=== PATIENT | female | born 1950 | race Caucasian/White ===

== ENCOUNTER 2020-06-10 05:50 | Inpatient (IN) ==
--- NOTE | 2020-05-08 10:48 | PAT Medication Instructions ---
Medication Instructions Date of Service May 08, 2020 Home Medications amlodipine 10 mg PO QAM aspirin [Aspir-81] 81 mg PO QAM biotin 1,000 mcg PO QAM calcium carbonate [Calcium 600] 600 mg PO BID cholecalciferol (vitamin D3) 10 mcg PO QAM furosemide 40 mg PO QAM metformin 500 mg PO BID metoprolol tartrate 100 mg PO QAM multivitamin 1 cap PO DAILY potassium chloride [Klor-Con M20] 20 meq PO QAM simvastatin 20 mg PO HS DO NOT take the morning of surgery biotin 1,000 mcg PO QAM calcium carbonate [Calcium 600] 600 mg PO BID cholecalciferol (vitamin D3) 10 mcg PO QAM furosemide 40 mg PO QAM metformin 500 mg PO BID multivitamin 1 cap PO DAILY potassium chloride [Klor-Con M20] 20 meq PO QAM Take morning of surgery With a small sip of water, OTHERWISE NOTHING TO EAT OR DRINK AFTER MIDNIGHT: amlodipine 10 mg PO QAM aspirin [Aspir-81] 81 mg PO QAM metoprolol tartrate 100 mg PO QAM Take evening before surgery calcium carbonate [Calcium 600] 600 mg PO BID metformin 500 mg PO BID simvastatin 20 mg PO HS Other Notes If you have any questions please call us at [phone] or [phone] or [phone] or [phone]
--- NOTE | 2020-05-08 10:59 | Anesthesiology Consultation ---
Date of Service May 08, 2020 Assessment & Plan (1) Encounter for pre-operative examination: COVID Status: As of 05/08 assessment, patient denies travel to endemic area, known exposure/sick contacts, or symptoms of COVID19. Preoperative COVID19 testing to be completed prior to surgery, pt aware to self-quarantine after test is completed. Chart Review Chart Review: Acceptable Risk for Surgery (pending surgeon ordered PCP clearance 05/20) and Patient seen in Pre Admission Testing Teaching & Discussion Instructed NPO after midnight before surgery, except medications with 15 cc of water. Medication instructions provided according to the PAT guidelines. History Surgery Operation Date: 06/10/20 07:00 Proposed Procedures p Left Total Knee Arthroplasty - Uche Whitman DO Height/Weight Height: 5 ft 1.5 in Weight: 106.3 kg Allergies Allergy/AdvReac Type Severity Reaction Status Date / Time droperidol AdvReac Unknown ANXIOUS Verified 05/05/20 14:08 lisinopril AdvReac Unknown Cough Verified 05/05/20 14:08 Medications Home Medications Medication Instructions Recorded Confirmed Last Taken amlodipine 10 mg PO QAM 05/05/20 05/05/20 Unknown aspirin [Aspir-81] 81 mg PO QAM 05/05/20 05/05/20 Unknown biotin 1,000 mcg PO QAM 05/05/20 05/05/20 Unknown calcium carbonate [Calcium 600] 600 mg PO BID 05/05/20 05/05/20 Unknown cholecalciferol (vitamin D3) 10 mcg PO QAM 05/05/20 05/05/20 Unknown [Vitamin D3] furosemide 40 mg PO QAM 05/05/20 05/05/20 Unknown metformin 500 mg PO BID 05/05/20 05/05/20 Unknown metoprolol tartrate 100 mg PO QAM 05/05/20 05/05/20 Unknown multivitamin 1 cap PO DAILY 05/05/20 05/05/20 Unknown potassium chloride [Klor-Con M20] 20 meq PO QAM 05/05/20 05/05/20 Unknown simvastatin 20 mg PO HS 05/05/20 05/05/20 Unknown Past Medical History Medical History Arthritis High cholesterol History of kidney stones HTN (hypertension) Morbid obesity Numbness of toes BOTH FEET (SPORADIC) Pre-diabetes SOB (shortness of breath) on exertion UP A HILL OR LARGE FLIGHT OF STEPS Exercise / Class Metabolic Activity III < 4 Walking/Shop/Light housework (Denies CP or SOB with ambulation on one level) Past Family History Family History (Updated 05/05/20 @ 14:18 by Sanjay Mcgee RN) Mother Family history of esophageal cancer Family history of cancer Sister Family history of cancer Father Family history of cancer Aunt Family history of cancer Past Surgical History Surgical History History of arthroscopy of right knee History of bilateral oophorectomy History of X2 (1 WITH TUBAL LIGATION) History of colonoscopy History of D&C History of exploratory laparotomy History of left cataract surgery History of right cataract surgery Past Anesthesia History No Hx of Anesthesia Complications and No Family Hx of Anesthesia Complications History of PONV No Hx of PONV and No Hx of Motion Sickness Social History Smoking Status: Never smoker Do You Dip or Chew Tobacco: No Hx Alcohol Use: Yes Alcohol type: beer alcohol intake frequency: a few times a month Hx Substance Use: No substance use type: does not use Review of Systems Pt denies any recent chest pain, shortness of breath, palpitations, cough, fever or URI. Physical Exam Vital Signs BP: 125/79 P: 84bpm SPO2: 95% RA T: 98.1 F R: 16 ENMT Mouth: + dental restorations (upper R crown); no chipped teeth and no loose teeth Thyromental Distance: < 3.5 Finger Breadths (3) Mallampati Class: II Neck + short neck; neck extension not limited Respiratory normal respiratory effort Auscultation: lungs clear to auscultation bilaterally Cardiovascular Rate/Rhythm: regular rate and regular rhythm Heart Sounds: no murmur Extremities: no edema Testing Laboratory Results 05/08/20 11:10 PT 10.9 Seconds (9.0-12.0) 05/08/20 11:10 INR 1.0 (0.9-1.1) 05/08/20 11:10 APTT 27.5 Seconds (21.0-31.0) 05/08/20 11:10 Hemoglobin A1c 6.6 % (4.5-5.6) H 05/08/20 11:10 Urine Color Dark Yellow 05/08/20 11:10 Urine Appearance Clear (Clear) 05/08/20 11:10 Urine pH 5.0 (4.5-7.5) 05/08/20 11:10 Ur Specific [place] 1.027 (1.000-1.030) 05/08/20 11:10 Urine Protein Trace (Negative) H 05/08/20 11:10 Urine Glucose (UA) Negative (Negative) 05/08/20 11:10 Urine Ketones Trace (Negative) H 05/08/20 11:10 Urine Nitrite Negative (Negative) 05/08/20 11:10 Ur Leukocyte Esterase Negative (Negative) 05/08/20 11:10 Urine WBC (Auto) 5-10 /hpf (0-5) H 05/08/20 11:10 Urine RBC (Auto) 5-10 /hpf (0-4) H 05/08/20 11:10 U Hyaline Cast (Auto) 1-5 /lpf (0-5) 05/08/20 11:10 U Epithel Cells (Auto) 10-20 /lpf (0-5) H 05/08/20 11:10 Urine Bacteria (Auto) Negative (Negative) 05/08/20 11:10 Blood Type A Positive 05/08/20 11:10 Antibody Screen NEGATIVE 05/08/20 11:10 Electrocardiogram Date: 05/08/20 Findings: + NSR @ (75bpm) Chest X-Ray Date: 05/08/20 Findings: + NAD
--- NOTE | 2020-05-08 11:43 | XRay Report ---
XR chest Pre-admission PA/Lat CLINICAL HISTORY: Preoperative evaluation. COMPARISON STUDY: No previous studies for comparison. FINDINGS: Lung volumes are normal. Lungs are clear. There is no pneumothorax or pleural effusion. Car diac size is normal. Mediastinal contours are normal. There is no evidence for pulmonary edema. IMPRESSION: No acute cardiopulmonary findings. ACT 112: Negative or not required by law. Electronically signed by: Arvind Mccollum M.D. 05/08/2020 11:41 AM
[2020-05-08 13:03] LABS: Basophils # (auto) 0.03 K/uL (0-0.2); Basophils % (auto) 0.4 %; Eosinophils # (auto) 0.12 K/uL (0-0.5); Eosinophils % (auto) 1.5 %; Hematocrit (blood only) 44.1 % (37-47); Hemoglobin 14.7 g/dL (12.0-16.0); Immature Granulocytes # (auto) 0.03 K/uL (0.00-0.02); Immature Granulocytes % (auto) 0.4 %; Lymphocytes # (auto) 1.75 K/uL (1.2-3.4); Lymphocytes % (auto) 21.7 %; Mean Corpuscular Hemoglobin 31.4 pg (25-34); Mean Corpuscular Hgb Conc 33.3 g/dL (32-36); Mean Corpuscular Volume 94.2 fL (80-100); Mean Platelet Volume 11.2 fL (7.4-10.4); Monocytes % (auto) 8.7 %; Neutrophils # (auto) 5.45 K/uL (1.4-6.5); Neutrophils % (auto) 67.3 %; Platelet Count 282 K/uL (130-400); RDW Coefficient of Variation 13.4 % (11.5-14.5); RDW Standard Deviation 45.7 fL (36.4-46.3); Red Blood Count 4.68 M/uL (4.2-5.4); White Blood Count 8.08 K/uL (4.8-10.8)
[2020-05-08 13:17] LABS: Partial Thromboplastin Time 27.5 Seconds (21.0-31.0); Prothrombin Time 10.9 Seconds (9.0-12.0)
[2020-05-08 13:31] LABS: Appearance Urine Clear (Clear); Bacteria Urine Automated Negative (Negative); Blood Urine Negative (Negative); Color Urine Dark Yellow; Glucose Urine UA Negative (Negative); Ketones Urine Trace (Negative); Leukocyte Esterase Urine Negative (Negative); Nitrite Urine Negative (Negative); Protein Urine Trace (Negative); Specific Gravity Urine 1.027 (1.000-1.030); Urobilinogen Urine Negative (Negative)
[2020-05-08 13:35] LABS: Bilirubin Urine Negative (Negative); Ictotest Urine Negative (Negative)
[2020-05-08 13:36] LABS: Estimated Average Glucose 143 mg/dl; Hemoglobin A1C 6.6 % (4.5-5.6)
--- NOTE | 2020-05-09 06:20 | Electrocardiogram Report ---
Test Reason : Blood Pressure : / mmHG Vent. Rate : 075 BPM Atrial Rate : 075 BPM P-R Int : 146 ms QRS Dur : 084 ms QT Int : 404 ms P-R-T Axes : 030 -15 018 degrees QTc Int : 451 ms Normal sinus rhythm Normal ECG No previous ECGs available Confirmed by Chun Rogers ([id number]) on 05/09/2020 6:20:27 AM Referred By: Uche Whitman Confirmed By:Chun Rogers
--- NOTE | 2020-05-18 08:34 | History & Physical Report ---
Date of Service May 18, 2020 date of surgery: 06-10-20 Assessment & Plan (1) Osteoarthritis of left knee: Risks and benefits of procedure discussed in detail today, patient would like to proceed with a left total knee replacement at [facility] as scheduled. will obtain medical clearance from Dr Tinoco prior to surgery as well as obtain PATs at [facility]. Will place on ASA 81mg po bid x 1 month post op, f/u 2 weeks post op for routine post-operative care and x-ray, sooner i f having any problems. will make arrangements for HHPT at the time of discharge. At this point in time, has failed conservative measures and would like to proceed with surgical intervention. The risks and benefits have been discussed including, but not limited to, risk of infection, nerve injury, stiffness, loss of motion, failure to improve, etc. Reasonable outcomes and options of treatment were discussed. An explanation of appropriate alternatives to the procedure that may be advantageous were discussed and their risks and benefits, as well as the risks and benefits of not proceeding with treatment. I offered to answer any additional inquiries concerning the treatment involved. All the patient's questions were answered. The patient is agreeable, understanding of the treatment plan and alternatives, and wishes to proceed with the treatment plan. History of Present Illness Chief Complaint: left knee pain Primary Care Provider: Natalie Garcia Liane is a pleasant 70 year old who complains of left knee pain, presents for pre-op evaluation prior to a left total knee replacement by dr Whitman at [facility]. she complains of pain, crepitus, decreased range of motion, instability and stiffness in her left knee. She states that the symptoms have been chronic and non-traumatic. She states that the symptoms occur constantly with intermittent worsening. Currently the patient states that the symptoms are moderate-severe. The pain is described as aching, sharp and throbbing. The symptoms occur continuously. The symptoms are aggravated by ascending stairs, daily activities, first steps while awake walking. Prior NSAIDs include Aleve and Advil. She has been treated with previous Visco injections in the past without much relief, most recently Durolane in December 2019. Allergies Allergy/AdvReac Type Severity Reaction Status Date / Time droperidol AdvReac Unknown ANXIOUS Verified 05/05/20 14:08 lisinopril AdvReac Unknown Cough Verified 05/05/20 14:08 Home Medications Home Medications Medication Instructions Recorded Confirmed Type amlodipine 10 mg PO QAM 05/05/20 05/05/20 History aspirin [Aspir-81] 81 mg PO QAM 05/05/20 05/05/20 History biotin 1,000 mcg PO QAM 05/05/20 05/05/20 History calcium carbonate [Calcium 600] 600 mg PO BID 05/05/20 05/05/20 History cholecalciferol (vitamin D3) 10 mcg PO QAM 05/05/20 05/05/20 History [Vitamin D3] furosemide 40 mg PO QAM 05/05/20 05/05/20 History metformin 500 mg PO BID 05/05/20 05/05/20 History metoprolol tartrate 100 mg PO QAM 05/05/20 05/05/20 History multivitamin 1 cap PO DAILY 05/05/20 05/05/20 History potassium chloride [Klor-Con M20] 20 meq PO QAM 05/05/20 05/05/20 History simvastatin 20 mg PO HS 05/05/20 05/05/20 History Past Med/Surg History Medical History Arthritis High cholesterol History of kidney stones HTN (hypertension) Morbid obesity Numbness of toes BOTH FEET (SPORADIC) Pre-diabetes SOB (shortness of breath) on exertion UP A HILL OR LARGE FLIGHT OF STEPS Surgical History History of arthroscopy of right knee History of bilateral oophorectomy History of X2 (1 WITH TUBAL LIGATION) History of colonoscopy History of D&C History of exploratory laparotomy History of left cataract surgery History of right cataract surgery Family History Mother Family history of esophageal cancer Family history of cancer Sister Family history of cancer Father Family history of cancer Aunt Family history of cancer Social History Preferred Language: [place] Citizen Communication Ability: Effective Microsoft Developer Required: No Beliefs That Will Affect Care: None and Rastafarian Rastafarian Beliefs: NONDENOMINATIONAL Current Living Situation: Spouse Feels Safe at Home: Yes Smoking Status: Never smoker Hx Alcohol Use: Yes Alcohol type: beer Hx Substance Use: No Review of Systems Review of Systems: All systems reviewed & are unremarkable except as noted in HPI & below Constitutional: no fever, no chills and no sweats Respiratory: no cough and no dyspnea Cardiovascular: no chest pain, no dyspnea and no orthopnea Gastrointestinal: no abdominal pain, no nausea and no vomiting Musculoskeletal: as per Subjective / HPI Physical Exam Physical Exam: Ht: 5ft1in Wt: 106kg Constitutional: WD/WN, vitals as above no acute distress Respiratory: normal respiratory effort, lungs clear to auscultation no respiratory distress, no labored breathing and does not use accessory muscles Cardiovascular: RRR, no murmur, no edema Gastrointestinal (Abdomen): normal bowel sounds, soft, nontender, no hepatosplenomegaly Musculoskeletal: Knee: + knee abnormal to inspection (Left knee- varus alignment), + effusion (+1 effusion), + limited ROM of knee (ROM 0/3/110), + knee ROM with crepitation, + joint line tenderness (medial joint line) and + Roselyn's sign positive; no skin erythema, no ecchymosis, no valgus laxity, no varus laxity, anterior drawer test negative, Jaycee's sign negative and pivot shift test negative Results & Data Results & Data ([facility]) Laboratory Results Laboratory Results WBC 8.08 K/uL (4.8-10.8) 05/08/20 11:10 RBC 4.68 M/uL (4.2-5.4) 05/08/20 11:10 Hgb 14.7 g/dL (12.0-16.0) 05/08/20 11:10 Hct 44.1 % (37-47) 05/08/20 11:10 MCV 94.2 fL (80-100) 05/08/20 11:10 MCH 31.4 pg (25-34) 05/08/20 11:10 MCHC 33.3 g/dL (32-36) 05/08/20 11:10 RDW Std Deviation 45.7 fL (36.4-46.3) 05/08/20 11:10 RDW Coeff of Fortino 13.4 % (11.5-14.5) 05/08/20 11:10 Plt Count 282 K/uL (130-400) 05/08/20 11:10 MPV 11.2 fL (7.4-10.4) H 05/08/20 11:10 Immature Gran % (Auto) 0.4 % 05/08/20 11:10 Neut % (Auto) 67.3 % 05/08/20 11:10 Lymph % (Auto) 21.7 % 05/08/20 11:10 Edwards % (Auto) 8.7 % 05/08/20 11:10 Eos % (Auto) 1.5 % 05/08/20 11:10 Baso % (Auto) 0.4 % 05/08/20 11:10 Immature Gran # (Auto) 0.03 K/uL (0.00-0.02) H 05/08/20 11:10 Neut # (Auto) 5.45 K/uL (1.4-6.5) 05/08/20 11:10 Lymph # (Auto) 1.75 K/uL (1.2-3.4) 05/08/20 11:10 Edwards # (Auto) 0.70 K/uL (0.11-0.59) H 05/08/20 11:10 Eos # (Auto) 0.12 K/uL (0-0.5) 05/08/20 11:10 Baso # (Auto) 0.03 K/uL (0-0.2) 05/08/20 11:10 PT 10.9 Seconds (9.0-12.0) 05/08/20 11:10 INR 1.0 (0.9-1.1) 05/08/20 11:10 APTT 27.5 Seconds (21.0-31.0) 05/08/20 11:10 PTT Ratio 1.0 05/08/20 11:10 Estimat Average Glucose 143 mg/dl 05/08/20 11:10 Hemoglobin A1c 6.6 % (4.5-5.6) H 05/08/20 11:10 Urine Color Dark Yellow 05/08/20 11:10 Urine Appearance Clear (Clear) 05/08/20 11:10 Urine pH 5.0 (4.5-7.5) 05/08/20 11:10 Ur Specific [place] 1.027 (1.000-1.030) 05/08/20 11:10 Urine Protein Trace (Negative) H 05/08/20 11:10 Urine Glucose (UA) Negative (Negative) 05/08/20 11:10 Urine Ketones Trace (Negative) H 05/08/20 11:10 Urine Blood Negative (Negative) 05/08/20 11:10 Urine Nitrite Negative (Negative) 05/08/20 11:10 Urine Bilirubin Negative (Negative) 05/08/20 11:10 Urine Urobilinogen Negative (Negative) 05/08/20 11:10 Ur Leukocyte Esterase Negative (Negative) 05/08/20 11:10 Urine WBC (Auto) 5-10 /hpf (0-5) H 05/08/20 11:10 Urine RBC (Auto) 5-10 /hpf (0-4) H 05/08/20 11:10 U Hyaline Cast (Auto) 1-5 /lpf (0-5) 05/08/20 11:10 U Epithel Cells (Auto) 10-20 /lpf (0-5) H 05/08/20 11:10 Urine Bacteria (Auto) Negative (Negative) 05/08/20 11:10 Blood Type A Positive 05/08/20 11:10 Antibody Screen NEGATIVE 05/08/20 11:10 Diagnostic Findings Left Knee X-ray December 2019 confirms advanced degenerative changes to the left knee, greatest medial compartments and patellofemoral joint, showing joint space narrowing, osteophyte formation and subchondral sclerosis. no acute bony pathology noted, varus alignment.
[2020-06-10] MEDS ORDERED: CEFAZOLIN 2000MG 2,000 MG/15 ML SYR IV SCH (06:00)
[2020-06-10] MEDS ORDERED: FAMOTIDINE 20 MG TAB PO SCH (06:00)
[2020-06-10] MEDS ORDERED: METOCLOPRAMIDE HCL 10 MG TABLET PO SCH (06:00)
[2020-06-10] MEDS ORDERED: GABAPENTIN 300 MG CAP PO SCH (06:00)
[2020-06-10] MEDS ORDERED: TRANEXAMIC ACID 1,000 MG **IV Pre-op IV SCH (06:00)
[2020-06-10] MEDS ORDERED: ACETAMINOPHEN 500 MG TAB PO SCH (06:00)
[2020-06-10] MEDS ORDERED: dexAMETHasone 4 MG TAB PO SCH (06:00)
[2020-06-10] MEDS ORDERED: ROPIVACAINE 0.5% HCL/PF 150 MG, BUPIVACAINE 0.5% MPF 30 ML, EPINEPHrine 30MG/30ML (OR U... INSTIL SCH (06:00)
[2020-06-10] MEDS ORDERED: TRANEXAMIC ACID 1,000 MG **IV Intra-op IV SCH (06:00)
[2020-06-10] MEDS ORDERED: LR 500ML BOLUS, THEN 15ML/HR IV SCH (06:00)
[2020-06-10] MEDS ORDERED: CeleBREX 200 MG CAP PO SCH (06:00)
[2020-06-10] MEDS ORDERED: MIDAZOLAM HCL 1 MG/ML 2ML VIAL ONE ×2 (06:48)
[2020-06-10] MEDS ORDERED: BACITRACIN INJ 50,000 UNIT VIAL ONE (07:01)
[2020-06-10] MEDS ORDERED: ORTHO JOINT ANESTHETIC ONE (07:01)
--- NOTE | 2020-06-10 07:18 | History & Physical Bridge Note ---
Date of Service June 10, 2020 History & Physical Bridge Note I have examined the patient, reviewed the History & Physical and in the interval since the performance of the History & Physical I have noted the following changes of clinical significance: no changes noted
[2020-06-10] MEDS ORDERED: ROPIVACAINE 0.5% 5 MG/ML 30 ML VIAL ONE (07:45)
[2020-06-10] MEDS ORDERED: EPINEPHrine INJ 1 MG/ML AMP ONE (07:45)
[2020-06-10] MEDS ORDERED: BUPIVACAINE 0.5 % 5 MG/1 ML PF 10ML VIAL ONE (07:45)
[2020-06-10] MEDS ORDERED: ePHEDrine sulfate 50 MG/ML AMP IV PRN (08:58)
[2020-06-10] MEDS ORDERED: fentaNYL citrate 100 MCG/2 ML VIAL IV PRN (08:58)
[2020-06-10] MEDS ORDERED: ONDANSETRON INJ 2 MG/ML 2 ML VIAL IV PRN ×2 (08:58→11:02)
[2020-06-10] MEDS ORDERED: PROMETHAZINE HCL 12.5 MG in SODIUM CHLORIDE 0.9% 50 ML IV PRN (08:58)
[2020-06-10] MEDS ORDERED: ATROPINE SULFATE 0.1 MG/ML 10ML SYR IV PRN (08:58)
[2020-06-10] MEDS ORDERED: FLUMAZENIL 0.1 MG/1 ML 10 ML VIAL IV PRN (08:58)
[2020-06-10] MEDS ORDERED: NALOXONE HCL 0.4 MG/1 ML VIAL/CARP IV PRN ×2 (08:58→11:02)
--- NOTE | 2020-06-10 09:32 | Operative Report ---
Post Operative Report Pre & Post Diagnosis Operation Date: 06/10/20 08:20 Pre-Op Diagnosis: LEFT KNEE OSTEOARTHRITIS Post-Op Diagnosis: LEFT KNEE OSTEOARTHRITIS I identified the patient and participated in the time-out.: Yes Procedure Operation Date: 06/10/20 08:20 Actual Procedures p Left Total Knee Arthroplasty(Left utilizing Best [employer] NephSounday journey 2 patient matched total knee arthroplasty size 4 femur 4 tibia 10 polyethylene 35 oval patella) - Uche Whitman DO Surgeon Uche Whitman DO Data Operations Leader Keven JIMENES Estimated Blood Loss 5 Findings Consistent with Post-Op Diagnosis Patient presents with severe end-stage DJD tricompartmentally with varus alignment subchondral sclerosis marginal osteophytes subchondral cystic changes eburnated bone large effusion no response to conservative management Specimens Bone and cartilage Drains Medium bore Hemovac Anesthesia Type MAC Spinal Regional Complications none Disposition Accompanied Patient To Recovery: No Disposition: Recovery Room Indications Patient presents is a 70-year-old female after failing attempts at conservative management clinic physical therapy anti-inflammatories relative rest activity modification corticosteroid injections Visco supplementation the above intraoperative findings are noted Description of Procedure After proper prepping and draping of the left lower extremity anterior midline incision was made over the region of the extensor extensor mechanism after meticulous hemostasis was obtained and maintained in subcutaneous tissues a medial parapatellar incision was made The patella was subluxed lateralward the medial lateral gutter were cleaned from any hypertrophic synovitis and scar tissue of the distal femoral block was placed and the distal femoral osteotomy cut was made subsequently the chamfers anterior and posterior osteotomy cuts were made utilizing the 4-in-1 block the tibia was subsequently subluxed anteriorward medial and ateral meniscal remnants were excised in their entirety remnants of the anterior and posterior cruciate ligaments were excised in their entirety excellent exposure of the proximal tibia was obtained the tibial osteotomy guide was placed on the proximal tibial osteotomy cut was made once again the knee was irrigated with copious amounts of sterile saline solution the patella was subsequently everted lateralward thickened scar tissue around the patella was removed the patella was subsequently cut utilizing a freehand technique and was drilled prepared for final preparation and placement of patella socially flexion-extension gaps were checked and the equal and symmetric trials were placed to the appropriate femoral and tibial trials with poly-spacer being placed for equal flexion and extension gaps and full range of motion including extension to 0 and flexion to 140 the trial components after having been taken to recovery range of motion was subsequently removed meticulous hemostasis was obtained and maintained subsequently a knee block injection of joint cocktail including ropivacaine 0.5% 150 mg. Bupivacaine 0.5% epinephrine 1-200,030 mL's toradol 30 mg dexamethasone 4 mg ketamine 10 mg clonidine 100 micrograms normal saline solution 30 mg was infiltrated into the soft tissues of the posterior knee medial lateral gutters and periosteal synovium special attention was paid to protect neurovascular structures at all times subsequently trial components having been removed the knee was irrigated with sterile saline solution. debris was removed the proximal tibia was subsequently prepared and was made ready for the placement of the tibial component tibial component was also cemented and tamped into position the femoral component was subsequently placed and cemented in the position the patellar component was subsequently cemented in position because hemostasis once again obtained and maintained wound having been thoroughly irrigated with debridement and debridement lavage was performed as well as a medial parapatellar incision closed with #1 Vicryl in interrupted fashion subcutaneous was closed with #2 Vicryl skin was closed with skin clips. PA-C was necessary for prepping and drapping as well as wound closure of deep fascia Sub cutaneous tissue and skin and was necessary for the case. A sterile compressive dressing was placed patient was taken to recovery in stable condition of report dictated by J Cralos I attest to the content of the Intraoperative Record and any orders documented therein. Any exceptions are noted below. I attest to the content of the Intraoperative Record and any orders documented therein. Any exceptions are noted below.
--- NOTE | 2020-06-10 10:31 | Anesthesiology Progress Note ---
Date of Service June 10, 2020 Anesthesia Post Procedure Vital Signs Vital Signs: Temp Pulse Pulse Resp BP Pulse Ox 06/10/20 10:20 77 24 114/62 94 06/10/20 10:11 36.9 C 82 15 124/68 99 06/10/20 06:10 36.8 C 68 18 144/90 H 95 Pain Intensity Left Knee: Pain Intensity: 0 Transfer of Care Handoff Completed per policy Notes Mental Status: alert / awake / arousable Patient Amnestic to Procedure: Yes Nausea / Vomiting: adequately controlled Pain: adequately controlled Airway Patency, RR, SpO2: stable & adequate BP & HR: stable & adequate Hydration State: stable & adequate Neuraxial Anesthesia: was administered and sensory block is resolving Anesthetic Complications: no major complications apparent
[2020-06-10] MEDS ORDERED: HYDROmorphone INJ 0.5 MG/0.5 ML SYR IV PRN (11:02)
[2020-06-10] MEDS ORDERED: bisacodyL 10 MG SUPP PR PRN (11:02)
[2020-06-10] MEDS ORDERED: MAGNESIUM HYDROXIDE SUSP 30 ML UDC PO PRN (11:02)
[2020-06-10] MEDS ORDERED: PHARMACY GLYCEMIC MGMT CONSULT PRN (11:10)
--- NOTE | 2020-06-10 11:11 | XRay Report ---
LEFT KNEE 2 VIEWS History: Left total knee arthroplasty. Degenerative arthritis. Postop. FINDINGS: The patient is status post a left total knee arthroplasty. The hardware is intact. No fract ure or dislocation. Skin akua and surgical drains are in place. IMPRESSION: Left total knee arthroplasty. No evidence for hardware complication. ACT 112: Negative or not required by law. Electronically signed by: Richmond Maya M.D. 06/10/2020 11:09 AM
[2020-06-10] MEDS ORDERED: SODIUM CHLORIDE 0.9% 1000ML 1,000 ML IV SCH (12:00)
[2020-06-10] MEDS ORDERED: NovoLIN-N (NPH) PER UNIT CHARGE SQ ONE (12:00)
[2020-06-10] MEDS: INSULIN ASPART 100 UNITS/ML 3 ML PEN SC SCH ×3 (12:31→21:49)
[2020-06-10] MEDS: ACETAMINOPHEN 500 MG TAB PO SCH ×2 (13:47→20:42)
[2020-06-10] MEDS ORDERED: GLUCOSE 40% GEL 15 GM TUBE PO PRN (15:30)
[2020-06-10] MEDS ORDERED: GLUCAGON FOR INJ 1 MG VIAL IM PRN (15:30)
[2020-06-10] MEDS ORDERED: DEXTROSE 50% 50 ML SYRINGE IV PRN (15:30)
[2020-06-10] MEDS ORDERED: GLUCOSE 10 TABS/TUBE PO PRN (15:30)
[2020-06-10] MEDS ORDERED: CARBOHYDRATES FOR HYPOGLYCEMIA PO PRN (15:30)
--- NOTE | 2020-06-10 15:31 | Pharmacy Report ---
Glycemic Control Consultation - Date of Service June 10, 2020 - Scope Scope: Glycemic Pharmacist consulted for glycemic control and to write orders per [facility] inpatient glycemic control protocol. - Objective Weight: 107.7 kg Accuchecks BSG (last 24hrs): 06/10/20 06/10/20 06/10/20 06:21 10:14 12:06 POC Glucose 145 H 185 H 208 H HbA1c: Hemoglobin A1c 6.6 % (4.5-5.6) H 05/08/20 11:10 - Recent Pertinent Medications Outpatient Anti-diabetic Regimen: * Metformin 500 mg PO BID * A1c = 6.6 % on 05/08/20 Risk Factors for Insulin Resistance: * Steroids: Decadron 8 mg PO preop x 1 * Infection: Ancef 2 gm IV q8h x 2 doses postop * IVF: NS @ 100 ml/hr * Recent Surgery: L TKR * Diet: T2DM - Assessment & Plan Assessment & Plan: ASSESSMENT: * 70 y/o F admitted for L TKR with history of Type 2 diabetes. Patient managed at home on Metformin 500 mg. * Holding oral anti-diabetic meds for now but re-start tomorrow. * Utilized SQ basal bolus insulin regimen post op today for glycemic control. * To prevent steroid induced hyperglycemia due to Decadron 8 mg po given x 1 preop, NPH 0.2 units/kg (used adjusted body weight) x 1 dose given at lunch today. * Novolog parameters based on weight and stress of 2. PLAN FOR INPATIENT GLYCEMIC CONTROL: * Holding outpatient oral diabetes medications today * Basal insulin * NPH 15 units SQ x 1 dose given around noon. * Bolus insulin * NovoLog per scale ACHS or Q6hrs while NPO * Goal Range: Low 110 mg/dL - High 140 mg/dL * Correction Factor: 20 mg/dL/unit * Nutritional / Prandial insulin per carb ratio of 1 unit per 6 grams CHO consumed * Please note that the plan above was derived based on current level of insulin resistance and hospital stress. These recommendations are appropriate for inpatient admission only. Plan of care upon discharge will need to be reassessed to avoid potential outpatient hypo/hyperglycemia. Thank you.
[2020-06-10] MEDS: FERROUS GLUCONATE 324 MG TAB PO SCH (16:20)
[2020-06-10] MEDS: CEFAZOLIN 2000MG 2,000 MG/15 ML SYR IV SCH ×2 (16:20→23:43)
[2020-06-10] MEDS: ASPIRIN 81 MG ECTAB PO SCH (20:32)
[2020-06-10] MEDS: DOCUSATE SODIUM 100 MG CAP PO SCH (20:34)
[2020-06-10] MEDS ORDERED: SIMVASTATIN 20 MG TAB PO SCH (21:00)
[2020-06-10] MEDS ORDERED: SENNA 8.6 MG TAB PO SCH (21:00)
[2020-06-10] MEDS: OXYCODONE HCL IR 5 MG TAB (IMMEDIATE RELEASE) PO PRN (23:49)
[2020-06-11] MEDS: OXYCODONE HCL IR 5 MG TAB (IMMEDIATE RELEASE) PO PRN ×3 (05:09→13:31)
[2020-06-11] MEDS: ACETAMINOPHEN 500 MG TAB PO SCH (06:09)
[2020-06-11 06:22] LABS: Hematocrit (blood only) 36.1 % (37-47); Mean Corpuscular Hgb Conc 33.2 g/dL (32-36); Mean Corpuscular Volume 93.3 fL (80-100); Mean Platelet Volume 11.1 fL (7.4-10.4); Platelet Count 255 K/uL (130-400); RDW Coefficient of Variation 13.4 % (11.5-14.5); RDW Standard Deviation 45.2 fL (36.4-46.3); Red Blood Count 3.87 M/uL (4.2-5.4); White Blood Count 17.29 K/uL (4.8-10.8)
--- NOTE | 2020-06-11 06:49 | Orthopedic Progress Note ---
Date of Service June 11, 2020 Assessment & Plan (1) History of total left knee replacement: POD #1 s/p Left TKA pt/ot dvt proph with ROLANDO/SCD/ASA plan for d/c home with HHPT, recheck after PT Today. Admission and Anticipated Discharge Date Admission Date: June 10, 2020 Supervising Physician Co-Signing Physician Notes Agree with JALIL Rodríguez's note above. Patient doing well. Making good progress with therapy. Pain controlled. Plan for D/C home today. Subjective POD #1 s/p Left TKA Review of Systems Constitutional: no fever, no chills and no sweats Respiratory: no cough and no dyspnea Cardiovascular: no chest pain and no dyspnea Gastrointestinal: no abdominal pain, no nausea and no vomiting Physical Exam Physical Exam: Vital Signs Temp 36.5 C 06/11/20 03:28 Pulse 80 06/11/20 03:28 Resp 15 06/11/20 03:28 BP 134/79 06/11/20 03:28 Pulse Ox 95 06/11/20 03:28 Intake & Output 06/10/20 06/10/20 06/11/20 06:59 18:59 06:59 Intake Total 2450 / 4110 1660 / 4110 Output Total 550 / 1675 1125 / 1675 Balance 1900 / 2435 535 / 2435 Weight 107.7 kg 107.7 kg Intake: IV 800 / 1800 1000 / 1800 Lr 1,000 ml @ 15 mls/hr IV . 600 / 600 Q24H [facility] Rx#:[id number] Nss 1000ML 1,0 00 ml @ 100 mls/ 1000 / 1000 hr IV .Q10H [facility] Rx#:[id number] TRANEXAMIC ACI D / 0.7% NACL 1, 200 / 200 000 mg In 100 ml @ 600 mls/hr IV TODAY@0600 [facility] Rx#:[id number] IV Perioperative 1300 / 1300 Oral 350 / 1010 660 / 1010 Output: Urine 450 / 1175 725 / 1175 Estimated Blood Loss 5 / 5 Drain Output 95 / 495 400 / 495 Left Knee Hemo vac 95 / 495 400 / 495 Other: # Unmeasured Voi ds 1 Constitutional: WD/WN, vitals as above no acute distress Musculoskeletal: Left Leg: NVDI, calf SNT, negative melissa sign. DP palpable, able to wiggle toes/ankle movement without difficulty. dressing clean dry and intact. Results & Data ([facility]) Vital Signs (Past 12 Hours) Vital Signs Temp Pulse Resp BP Pulse Ox 06/11/20 03:28 36.5 C 80 15 134/79 95 06/10/20 22:50 36.6 C 85 18 154/82 H 98 06/10/20 20:14 36.4 C L 86 18 156/80 H 95 Laboratory Results Laboratory Results WBC 17.29 K/uL (4.8-10.8) H 06/11/20 05:50 RBC 3.87 M/uL (4.2-5.4) L 06/11/20 05:50 Hgb 12.0 g/dL (12.0-16.0) 06/11/20 05:50 Hct 36.1 % (37-47) L 06/11/20 05:50 MCV 93.3 fL (80-100) 06/11/20 05:50 MCH 31.0 pg (25-34) 06/11/20 05:50 MCHC 33.2 g/dL (32-36) 06/11/20 05:50 RDW Std Deviation 45.2 fL (36.4-46.3) 06/11/20 05:50 RDW Coeff of [place] 13.4 % (11.5-14.5) 06/11/20 05:50 Plt Count 255 K/uL (130-400) 06/11/20 05:50 MPV 11.1 fL (7.4-10.4) H 06/11/20 05:50 Immature Gran % (Auto) 0.4 % 05/08/20 11:10 Neut % (Auto) 67.3 % 05/08/20 11:10 Lymph % (Auto) 21.7 % 05/08/20 11:10 [place] % (Auto) 8.7 % 05/08/20 11:10 Eos % (Auto) 1.5 % 05/08/20 11:10 Baso % (Auto) 0.4 % 05/08/20 11:10 Immature Gran # (Auto) 0.03 K/uL (0.00-0.02) H 05/08/20 11:10 Neut # (Auto) 5.45 K/uL (1.4-6.5) 05/08/20 11:10 Lymph # (Auto) 1.75 K/uL (1.2-3.4) 05/08/20 11:10 [place] # (Auto) 0.70 K/uL (0.11-0.59) H 05/08/20 11:10 Eos # (Auto) 0.12 K/uL (0-0.5) 05/08/20 11:10 Baso # (Auto) 0.03 K/uL (0-0.2) 05/08/20 11:10 PT 10.9 Seconds (9.0-12.0) 05/08/20 11:10 INR 1.0 (0.9-1.1) 05/08/20 11:10 APTT 27.5 Seconds (21.0-31.0) 05/08/20 11:10 PTT Ratio 1.0 05/08/20 11:10 POC Glucose 256 mg/dl (70-99) H 06/10/20 20:48 Estimat Average Glucose 143 mg/dl 05/08/20 11:10 Hemoglobin A1c 6.6 % (4.5-5.6) H 05/08/20 11:10 Urine Color Dark Yellow 05/08/20 11:10 Urine Appearance Clear (Clear) 05/08/20 11:10 Urine pH 5.0 (4.5-7.5) 05/08/20 11:10 Ur Specific [place] 1.027 (1.000-1.030) 05/08/20 11:10 Urine Protein Trace (Negative) H 05/08/20 11:10 Urine Glucose (UA) Negative (Negative) 05/08/20 11:10 Urine Ketones Trace (Negative) H 05/08/20 11:10 Urine Blood Negative (Negative) 05/08/20 11:10 Urine Nitrite Negative (Negative) 05/08/20 11:10 Urine Bilirubin Negative (Negative) 05/08/20 11:10 Urine Urobilinogen Negative (Negative) 05/08/20 11:10 Ur Leukocyte Esterase Negative (Negative) 05/08/20 11:10 Urine WBC (Auto) 5-10 /hpf (0-5) H 05/08/20 11:10 Urine RBC (Auto) 5-10 /hpf (0-4) H 05/08/20 11:10 U Hyaline Cast (Auto) 1-5 /lpf (0-5) 05/08/20 11:10 U Epithel Cells (Auto) 10-20 /lpf (0-5) H 05/08/20 11:10 Urine Bacteria (Auto) Negative (Negative) 05/08/20 11:10 Blood Type A Positive 05/08/20 11:10 Antibody Screen NEGATIVE 05/08/20 11:10 Diagnostic Findings LEFT KNEE 2 VIEWS History: Left total knee arthroplasty. Degenerative arthritis. Postop. FINDINGS: The patient is status post a left total knee arthroplasty. The hardware is intact. No fracture or dislocation. Skin akua and surgical drains are in place. IMPRESSION: Left total knee arthroplasty. No evidence for hardware complication.
[2020-06-11 06:58] LABS: BUN Creatinine Ratio 22.5 (10-20); Calcium 8.2 mg/dl (8.5-10.1); Creatinine Clr Calc Pharmacy 67.1 ml/min; Est GFR (African American) 76.6; Est GFR (Non-African American) 66.1; Potassium 4.4 mmol/L (3.5-5.1)
[2020-06-11] MEDS: ASPIRIN 81 MG ECTAB PO SCH (07:22)
[2020-06-11] MEDS: FERROUS GLUCONATE 324 MG TAB PO SCH (07:22)
[2020-06-11] MEDS: DOCUSATE SODIUM 100 MG CAP PO SCH (07:22)
[2020-06-11] MEDS ORDERED: METFORMIN HCL 500 MG TAB PO SCH (08:00)
--- NOTE | 2020-06-11 08:28 | Anesthesiology Progress Note ---
Date of Service June 11, 2020 Anesthesia Post Procedure Vital Signs Vital Signs: Temp Pulse Pulse Resp BP BP Pulse Ox 06/11/20 07:15 36.5 C 74 16 131/75 97 06/11/20 03:28 36.5 C 80 15 134/79 95 06/10/20 22:50 36.6 C 85 18 154/82 H 98 06/10/20 20:14 36.4 C L 86 18 156/80 H 95 06/10/20 15:12 36.5 C 82 17 119/68 95 06/10/20 12:50 36.4 C L 81 17 137/77 95 06/10/20 11:50 36.6 C 75 17 135/73 93 06/10/20 11:20 76 17 127/73 93 06/10/20 10:50 36.5 C 78 16 130/70 94 06/10/20 10:40 75 18 125/72 94 06/10/20 10:30 36.5 C 76 18 121/67 94 06/10/20 10:20 77 24 114/62 94 06/10/20 10:11 36.9 C 82 15 124/68 99 Notes Mental Status: alert / awake / arousable Nausea / Vomiting: adequately controlled Pain: adequately controlled Airway Patency, RR, SpO2: stable & adequate BP & HR: stable & adequate Hydration State: stable & adequate Neuraxial Anesthesia: was administered and sensory block resolved Anesthetic Complications: no major complications apparent and Pt Satisfied with anesthetic care
[2020-06-11] MEDS ORDERED: AMLODIPINE BESYLATE 5 MG TAB PO SCH (09:00)
[2020-06-11] MEDS ORDERED: METOPROLOL TARTRATE 100 MG TAB PO SCH (09:00)
[2020-06-11] MEDS ORDERED: NovoLIN-N (NPH) PER UNIT CHARGE SQ ONE (09:00)
[2020-06-11] MEDS ORDERED: POTASSIUM CHLORIDE 20 MEQ TABCR PO SCH (09:00)
[2020-06-11] MEDS ORDERED: MULTIVITAMIN TAB PO SCH (09:00)
[2020-06-11] MEDS: INSULIN ASPART 100 UNITS/ML 3 ML PEN SC SCH ×2 (09:22→12:38)
--- NOTE | 2020-06-15 12:07 | Discharge Summary ---
Date of Service June 15, 2020 Admission HPI Per Admitting Provider Liane is a pleasant 70 year old who complains of left knee pain, presents for pre-op evaluation prior to a left total knee replacement by dr Whitman at [facility]. she complains of pain, crepitus, decreased range of motion, instability and stiffness in her left knee. She states that the symptoms have been chronic and non-traumatic. She states that the symptoms occur constantly with intermittent worsening. Currently the patient states that the symptoms are moderate-severe. The pain is described as aching, sharp and throbbing. The symptoms occur continuously. The symptoms are aggravated by ascending stairs, daily activities, first steps while awake walking. Prior NSAIDs include Aleve and Advil. She has been treated with previous Visco injections in the past without much relief, most recently Durolane in December 2019. Admission Exam Per Admitting Provider Physical Exam: Ht: 5ft1in Wt: 106kg Constitutional: WD/WN, vitals as above no acute distress Respiratory: normal respiratory effort, lungs clear to auscultation no respiratory distress, no labored breathing and does not use accessory muscles Cardiovascular: RRR, no murmur, no edema Gastrointestinal (Abdomen): normal bowel sounds, soft, nontender, no hepatosplenomegaly Musculoskeletal: Knee: + knee abnormal to inspection (Left knee- varus alignment), + effusion (+1 effusion), + limited ROM of knee (ROM 0/3/110), + knee ROM with crepitation, + joint line tenderness (medial joint line) and + Roselyn's sign positive; no skin erythema, no ecchymosis, no valgus laxity, no varus laxity, anterior drawer test negative, Jaycee's sign negative and pivot shift test negative Principal Diagnosis Left knee osteoarthritis Discharge Exam Date of Service June 11, 2020 Assessment & Plan (1) History of total left knee replacement: POD #1 s/p Left TKA pt/ot dvt proph with ROLANDO/SCD/ASA plan for d/c home with HHPT, recheck after PT Today. Admission and Anticipated Discharge Date Admission Date: June 10, 2020 Supervising Physician Co-Signing Physician Notes Agree with JALIL Rodríguez's note above. Patient doing well. Making good progress with therapy. Pain controlled. Plan for D/C home today. Subjective POD #1 s/p Left TKA Review of Systems Constitutional: no fever, no chills and no sweats Respiratory: no cough and no dyspnea Cardiovascular: no chest pain and no dyspnea Gastrointestinal: no abdominal pain, no nausea and no vomiting Physical Exam Physical Exam: Vital Signs Temp 36.5 C 06/11/20 03:28 Pulse 80 06/11/20 03:28 Resp 15 06/11/20 03:28 BP 134/79 06/11/20 03:28 Pulse Ox 95 06/11/20 03:28 Intake & Output 06/10/20 06/10/20 06/11/20 06:59 18:59 06:59 Intake Total 2450 / 4110 1660 / 4110 Output Total 550 / 1675 1125 / 1675 Balance 1900 / 2435 535 / 2435 Weight 107.7 kg 107.7 kg Intake: IV 800 / 1800 1000 / 1800 Lr 1,000 ml @ 15 mls/hr IV . 600 / 600 Q24H [facility] Rx#:[id number] Nss 1000ML 1,0 00 ml @ 100 mls/ 1000 / 1000 hr IV .Q10H [facility] Rx#:[id number] TRANEXAMIC ACI D / 0.7% NACL 1, 200 / 200 000 mg In 100 ml @ 600 mls/hr IV TODAY@0600 [facility] Rx#:[id number] IV Perioperative 1300 / 1300 Oral 350 / 1010 660 / 1010 Output: Urine 450 / 1175 725 / 1175 Estimated Blood Loss 5 / 5 Drain Output 95 / 495 400 / 495 Left Knee Hemo vac 95 / 495 400 / 495 Other: # Unmeasured Voi ds 1 Constitutional: WD/WN, vitals as above no acute distress Musculoskeletal: Left Leg: NVDI, calf SNT, negative melissa sign. DP palpable, able to wiggle toes/ankle movement without difficulty. dressing clean dry and intact. Results & Data ([facility]) Vital Signs (Past 12 Hours) Vital Signs Temp Pulse Resp BP Pulse Ox 06/11/20 03:28 36.5 C 80 15 134/79 95 06/10/20 22:50 36.6 C 85 18 154/82 H 98 06/10/20 20:14 36.4 C L 86 18 156/80 H 95 Discharge Data Allergies Allergy/AdvReac Type Severity Reaction Status Date / Time droperidol AdvReac Unknown ANXIOUS Verified 06/10/20 06:07 lisinopril AdvReac Unknown Cough Verified 06/10/20 06:07 Consultations 06/10/20 11:02 Consult Case Management - Discharge Planning Routine Procedures Performed Operation Date: 06/10/20 08:20 Actual Procedures p Left Total Knee Arthroplasty(Left) - Uche Whitman DO Ordered Studies 06/10/20 05:00 US - OR guided needle placemen Routine Hospital Course (1) Osteoarthritis of left knee: Patient was admitted on the above-noted date and had the above-noted surgery performed which she tolerated well. On her first postoperative day, she was feeling well without complaints. Pain was controlled. Dressings were clean, dry, and intact. Neurovascular is intact. Calves are soft nontender. Vital signs remained stable and hemoglobin was 12.0 WBCs were 17.2 likely due to surgical stress and preoperative steroids. She was started on physical and Occupational Therapy protocol and progressed well. She continue remained stable and was felt she be discharged home Total Time Total Time Spent Total Time Spent (In Minutes): 5 Discharge Plan Discharge Items Patient Disposition: Home - Home Health Services Reason For Visit: LEFT KNEE OSTEOARTHRITIS Discharge Diagnosis: Left Knee Osteoarthritis Activity: Per Instructions section Weightbearing: Left weightbearing Weightbearing Comment: as tolerated with walker Non-emergency contact: Surgeon Call non-emergency contact if: your pain is not controlled, your temperature is above 101.5, your wound has increased redness and your wound has increased drainage Follow-up/Referrals: Natalie Garcia M.D. [Primary Care Provider] - Diet: Carb Consistent or DM2 Addtl Attending Provider Instructions: ACTIVITY RECOMMENDATIONS: SELF CARE INSTRUCTIONS AFTER TOTAL KNEE REPLACEMENT A. You may need to continue a physical therapy program after discharge from the hospital. There are several options available to you. Your doctor will assist you in selecting the best one for you. 1. An out-patient facility 2 to 3 times a week for therapy or home therapy. 2. Continue working on all exercises taught to you in the hospital. Your goals should be to increase bending of your knee to 90 degrees and beyond and to fully straighten your knee. B. You may progress at your own pace from walking with a walker or crutches to a cane; then to no assistive devices. C. Make walking a part of your daily routine. Be up as much as comfortable with rest periods throughout the day. Rest with leg elevation is very important. Use the ice wrap frequently for the first 3-4 weeks. D. There are no restrictions on activities. You may ride in a car, shop, participate in long distance operator and all social activities. E. Wear the long elastic stockings (ROLANDO hose) 20 hours a day for 2 weeks after surgery. They can be removed several times a day for laundering and for a bath. F. You may shower, no tub baths until cleared by your doctor. SPECIAL CARE INSTRUCTIONS: VERY IMPORTANT TO READ AND REVIEW A. There are a few signs you need to watch for after you are home. Call [facility] if you notice any of the followin. Increased severe knee pain. Some pain is expected especially when you exercise. 2. Increased swelling in your leg or knee; pain or swelling of the calf muscle in either lower leg. 3. Any fluid drainage from the incision. 4. Shortness of breath or chest pain. B. Please call [facility] at if you have any concerns or questions about your operation or recovery. The doctor or his nurse will return your call promptly. C. You must take antibiotics before dental work, bladder, bowel or other s urgery. Your doctor will provide you with a permanent care to carry describing this precaution. IMPORTANT: * REMEMBER TO TAKE ASPIRIN, 81 MG, TWICE DAILY FOR 4 WEEKS UNLESS OTHERWISE DIRECTED. THIS IS YOUR BLOOD THINNER. * HIGH RISK PATIENTS MAY BE PRESCRIBED A STRONGER BLOOD THINNER. THIS WILL BE PROVIDED AT DISCHARGE. * CALL IF INCREASED PAIN, REDNESS, DRAINAGE OR FEVER GREATER THAT 101. * WEAR ROLANDO HOSE 20 HOURS PER DAY FOR 2 WEEKS. * Silverlon- This is a large adhesive bandage that contains silver ions. This helps your incision heal by fighting off bacteria and protecting it from the outside environment. You are permitted to shower with this dressing. This will remain on your incision for 7 days and then should be removed. Some visible blood or drainage through the dressing window is normal. If there is significant drainage or leaking noted before the 7 days notify your doctor's office immediately. Once removed, keep incision clean and dry. If there is any drainage or redness noted, please call your surgeon. . FOLLOW UP VISIT: If appointment is not already scheduled: Please call [facility] to make a follow-up appointment for 2 weeks after your surgery at . Stand-Alone Forms: My [facility], Smoking Cessation Medications and DC Order Prescriptions: New sennosides [Senokot] 8.6 mg Tablet 17.2 mg PO HS Qty: 30 RF: 0 aspirin 81 mg Tablet,Delayed Release (Dr/Ec) 81 mg PO BID 30 Days Qty: 60 RF: 0 acetaminophen 500 mg Tablet 1,000 mg PO Q8 14 Days Qty: 84 RF: 0 cefadroxil 500 mg capsule 500 mg PO BID Qty: 28 RF: 1 oxycodone 5 mg Tablet 5 mg PO Q4H MDD 6 PRN (Reason: pain) Qty: 30 RF: 0 Continued furosemide 40 mg Tablet 40 mg PO QAM RF: 0 metoprolol tartrate 100 mg Tablet 100 mg PO QAM RF: 0 calcium carbonate [Calcium 600] 600 mg calcium (1,500 mg) Tablet 600 mg PO BID RF: 0 potassium chloride [Klor-Con M20] 20 mEq Tablet,Er Particles/Crystals 20 meq PO QAM RF: 0 amlodipine 10 mg Tablet 10 mg PO QAM RF: 0 simvastatin 20 mg Tablet 20 mg PO HS RF: 0 metformin 1,000 mg Tablet 500 mg PO BID RF: 0 multivitamin Capsule 1 cap PO DAILY RF: 0 cholecalciferol (vitamin D3) [Vitamin D3] 10 mcg (400 unit) Capsule 10 mcg PO QAM RF: 0 biotin 1,000 mcg Tablet,Chewable 1,000 mcg PO QAM RF: 0 Discontinued aspirin [Aspir-81] 81 mg Tablet,Delayed Release (Dr/Ec) 81 mg PO QAM RF: 0 Discharge Orders: Discharge Order (Routine); Ordered 06/11/20 Ordered By: Keven Watts/Other Patient Handouts: A1C Admission Data Admit Date/Time: 06/10/20 10:16 Attending Provider: Uche Whitman Admit Provider: Uche Whitman Primary Care Provider: Natalie Garcia Other Interventions: Discharge Summary Assessment (RN) Last Done: 06/11/20 13:00 DC Date/Time DO NOT enter until pt leaves facility: 06/11/20 14:37
== END 2020-06-11 14:37 | disposition home health service (06) | DRG 470 ==
LOC: ASU 05:50 → 3E 10:16